=== PATIENT | male | born 2000 | race Caucasian/White ===

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

== ENCOUNTER 2021-05-13 14:03 | Inpatient (IN) | payer MEDICAID ==
[~2021-05-13] VITALS: Ht 172.7 cm; Wt 122.8 kg
[~2021-05-13 14:03] MED LIST changes: -ANXIETY MED PO; +CITA10TA13 PO
[2021-05-13 14:37] LABS: BASOPHILS % (AUTO) 0.8 % (0.0-2.0); EOSINOPHILS % (AUTO) 1.5 % (1.0-6.0); HEMATOCRIT 42.7 % (41-53); HEMOGLOBIN 14.7 g/dL (13.5-17.5); MEAN CORPUSCULAR HEMOGLOBIN 29.8 pg (26.0-34.0); MEAN CORPUSCULAR HGB CONC 34.4 G/dL (31.0-37.0); MEAN CORPUSCULAR VOLUME 86 fL (80-100); MONOCYTES # (AUTO) 0.7 K/uL (0.1-1.0); MONOCYTES % (AUTO) 7.3 % (2.0-9.0); NEUTROPHILS # (AUTO) 5.9 K/uL (1.8-7.7); NEUTROPHILS % (AUTO) 60.4 % (40.0-70.0); PLATELET COUNT (AUTO) 173 K/uL (150-450); RED BLOOD CELL COUNT(AUTO) 4.94 MIL/uL (4.50-5.90)
[2021-05-13] MEDS ORDERED: HALOPERIDOL LACTATE 5 MG/ML VIAL IM ONE ×2 (14:45→16:30)
[2021-05-13] MEDS ORDERED: LORazepam 2 MG/ML VIAL IM ONE ×2 (14:45→16:30)
[2021-05-13] MEDS ORDERED: DiphenhydrAMINE HCL 50 MG/ML VIAL IM ONE (14:45)
[2021-05-13 14:47] LABS: AMPHET/METH SCREEN,URINE NEGATIVE (NEGATIVE); BARBITURATE SCREEN, URINE NEGATIVE (NEGATIVE); BENZODIAZEPINES SCREEN,URINE NEGATIVE (NEGATIVE); CANNABINOID SCREEN,URINE NEGATIVE (NEGATIVE); COCAINE SCREEN,URINE NEGATIVE (NEGATIVE); METHADONE SCREEN, URINE NEGATIVE (NEGATIVE); OPIATE SCREEN,URINE NEGATIVE (NEGATIVE); PHENCYCLIDINE SCREEN,URINE NEGATIVE (NEGATIVE)
[2021-05-13 14:48] LABS: ANION GAP 9 mmol/L (8-16); CALCIUM, TOTAL 9.7 mg/dL (8.8-10.5); CARBON DIOXIDE 28 mmol/L (22-29); CHLORIDE 103 mmol/L (98-107); CREATININE 0.73 mg/dL (0.60-1.30); GLOMERULAR FILTR. RATE CALC > 60 mL/min (>60); GLUCOSE,RANDOM 94 mg/dL (70-110); POTASSIUM 4.3 mmol/L (3.5-5.1); SODIUM SERUM 140 mmol/L (136-145); UREA NITROGEN, BLOOD 12 mg/dL (7-18)
[2021-05-13 14:53] LABS: ALANINE AMINOTRANSFERASE 63 U/L (12-78); ALBUMIN 4.4 g/dL (3.4-5.0); ALKALINE PHOSPHATASE 73 U/L (46-116); ASPARTATE AMINOTRANSFERASE 36 U/L (15-37); BILIRUBIN,TOTAL 0.5 mg/dL (0.1-1.0); TOTAL PROTEIN, SERUM 8.7 g/dL (6.4-8.2)
[2021-05-13 15:29] LABS: COVID AG,FIA SOURCE NASOPHARYNGEAL
[2021-05-13] MEDS ORDERED: HALOPERIDOL 5 MG TABLET PO PRN (15:30)
[2021-05-13] MEDS ORDERED: ZOLPIDEM TARTRATE 10 MG TABLET PO PRN (15:30)
[2021-05-14 00:43] VITALS: BP 138/80
[2021-05-14] MEDS ORDERED: MAGNESIUM HYDROXIDE SUSPENSION 30 ML UDCUP PO PRN (05:45)
[2021-05-14] MEDS ORDERED: ONDANSETRON HCL 4 MG TABLET PO PRN (05:45)
[2021-05-14] MEDS ORDERED: ALBUTEROL SULFATE HFA 90 MCG/PUFF 8 GM INHALER IH PRN (05:45)
[2021-05-14] MEDS ORDERED: LOPERAMIDE HCL 2 MG CAPSULE PO PRN (05:45)
[2021-05-14] MEDS ORDERED: BACITRACIN 28 GM OINTMENT TP PRN (05:45)
[2021-05-14] MEDS ORDERED: PETROLATUM,WHITE 28 GM JELLY TP PRN (05:45)
[2021-05-14] MEDS ORDERED: MAG HYDROX/AL HYDROX/SIMETH ES 30 ML SUSPENSION UDCUP PO PRN (05:45)
[2021-05-14] MEDS ORDERED: CloNIDine HCL 0.1 MG TABLET PO PRN (05:45)
[2021-05-14] MEDS ORDERED: ACETAMINOPHEN 325 MG TABLET PO PRN (05:45)
[2021-05-14] MEDS ORDERED: IBUPROFEN 600 MG TABLET PO PRN (05:45)
[2021-05-14] MEDS ORDERED: DOCUSATE SODIUM 100 MG CAPSULE PO PRN (05:45)
[2021-05-14] MEDS ORDERED: OMEPRAZOLE 20 MG CAPSULE PO PRN (05:45)
[2021-05-14 08:11] LABS: HEMOGLOBIN A1C 5.7 % (3.8-5.6)
[2021-05-14 08:16] VITALS: BP 125/73
[2021-05-14 08:26] LABS: CHOL/HDL RATIO 3.9 (4.2-7.3); FREE T4 (FREE THYROXINE) 0.82 ng/dL (0.76-1.46); THYROID STIMULATING HORMONE 1.86 uIU/mL (0.36-3.74)
[2021-05-14] MEDS: LORazepam 2 MG TABLET PO PRN ×2 (08:29→13:45)
[2021-05-14 16:09] VITALS: BP 102/62
[2021-05-15 04:08] VITALS: BP 116/80
[2021-05-15 08:27] VITALS: BP 125/72
[2021-05-15] MEDS: CITALOPRAM HYDROBROMIDE 20 MG TABLET PO SCH (08:31)
[2021-05-15 16:09] VITALS: BP 126/68
[2021-05-15] MEDS: LORazepam 2 MG TABLET PO PRN (17:21)
[2021-05-16 00:55] VITALS: BP 104/62
[2021-05-16] MEDS: CITALOPRAM HYDROBROMIDE 20 MG TABLET PO SCH (08:20)
[2021-05-16 08:26] VITALS: BP 118/61
[2021-05-16] MEDS ORDERED: CITA-144 PO ×2 (12:09→12:33)
== END 2021-05-16 14:03 | disposition home or self-care (01) | DRG 750 ==
LOC: EMS 14:07 → B2S 16:25
PROVIDERS: ADMIT Psychiatry & Neurology Psychiatry; ATTEND Psychiatry & Neurology Psychiatry
DX: F25.9 Schizoaffective disorder, unspecified (principal); E11.8 Type 2 diabetes mellitus with unspecified complications; E66.9 Obesity, unspecified; E78.5 Hyperlipidemia, unspecified; F10.10 Alcohol abuse, uncomplicated; Y90.9 Presence of alcohol in blood, level not specified; F31.9 Bipolar disorder, unspecified; I10 Essential (primary) hypertension; Z68.41 Body mass index [BMI] 40.0-44.9, adult; F12.90 Cannabis use, unspecified, uncomplicated; F41.9 Anxiety disorder, unspecified; Z20.822 Contact with and (suspected) exposure to COVID-19; K59.00 Constipation, unspecified; G47.00 Insomnia, unspecified; Z91.018 Allergy to other foods; Z72.0 Tobacco use
CPT/HCPCS: 80053; 80061; 83036; 84439; 84443; 85025; 99291; G0480; J1200; J1630; J2060